=== PATIENT | female | born 2000 | race Caucasian/White ===

== ENCOUNTER 2024-06-04 08:40 | Emergency (ER) | payer OTHER, SELFPAY ==
--- NOTE | ~2024-06-04 | CT_ITS ---
EXAMINATION: CT ABDOMEN AND PELVIS WITH CONTRAST CLINICAL INFORMATION: Right lower quadrant abdominal pain COMPARISON: None available. TECHNIQUE: Multidetector volumetric images were obtained from the superior aspect of the liver through the pubic symphysis following administration 85 mL of Omnipaque 350 intravenous contrast. Sagittal and coronal reformatted images were obtained on the technologist's workstation. Oral contrast: No This CT examination was performed using dose optimization techniques as appropriate, variously including the following: *Automated exposure control *Adjustment of mA and/or kV according to patient size (this includes techniques or standardized protocols for targeted exams where dose is matched to indication/reason for exam; i.e. extremities or head) *Use of iterative reconstruction technique DLP: 540 mGy centimeter. FINDINGS: LUNG BASES: No acute airspace disease in the included lungs. LIVER, GALLBLADDER, AND BILIARY TREE: Liver measures 15 cm. 4 mm hypodensity in the peripheral posterior right hepatic lobe and few less than 3 mm hypodensities in the inferior right hepatic lobe, too small to be fully characterized. Main portal veins, hepatic veins and intrahepatic portion of the IVC are patent. Gallbladder is contracted without pericholecystic fluid collection or gallbladder wall thickening. No intrahepatic or extrahepatic biliary ductal dilatation. PANCREAS: No focal mass. No main pancreatic ductal dilatation. No peripancreatic fluid collection. SPLEEN: 10 cm. No focal mass. Small accessory spleen. ADRENAL GLANDS: No nodular lesions. KIDNEYS AND URETERS: No renal mass. No hydronephrosis. No gross nephrolithiasis. BLADDER: Fluid-filled. GASTROINTESTINAL TRACT: Appendix is normal. No intestinal obstruction pattern. No pneumatosis intestinalis. No pneumoperitoneum. Small amount of ascites in the cul-de-sac. ABDOMINAL WALL: No gross hernia. LYMPH NODES: No lymphadenopathy. VASCULAR: No aneurysm or dissection, abdominal aorta. PELVIC VISCERA: Mild fluid-filled fallopian tubes, bilaterally. OSSEOUS STRUCTURES: No acute fracture or listhesis. No lytic or blastic lesions. CT/CT abdomen pelvis w IV con IMPRESSION: Questionable mild hydrosalpinx bilaterally. Appendix is normal. 2. Subcentimeter cystic lesions, right hepatic lobe. Fleischner guidelines were followed. Electronically signed by: Garo Gutierrez MD 06/04/2024 12:28 PM [facility] [place]
[2024-06-04 08:50] VITALS: BP 110/64; PULSE 86; RESP 16; TEMP 36.8; O2SAT 100; BMI 28.2
--- NOTE | 2024-06-04 08:56 | ED_ITS ---
HPI - General Adult General Chief complaint: Abdominal Pain Stated complaint: R Side Low Abd Pain Time Seen by Provider: 06/04/24 08:56 Source: patient Mode of arrival: ambulatory Limitations: no limitations History of Present Illness ED Provider: Chanelle Samson PA-C HPI narrative: Patient is a 24 year old assigned female at with no reported medical history presenting to the emergency department today with abdominal pain. Patient states that she has had intermittent right lower quadrant abdominal pain for awhile but it has gotten worse over the last few days. Patient denies any dizziness, lightheadedness, nausea, vomiting, fever, chills, blurry vision, double vision, loss of vision, chest pain, difficulty breathing, shortness of breath, back pain, night sweats, pain with urination, increased urinary frequency, increased urinary urgency, blood in her urine or stool, syncope or a near syncopal episode, recent trauma or falls, bowel incontinence, bladder incontinence, or any other complaints at this time. Location: abdomen Relieving factors: none Exacerbating factors: none Associated symptoms: denies other symptoms Treatments prior to arrival: none Related Data Allergies Allergy/AdvReac Type Severity Reaction Status Date / Time Penicillins Allergy Hives Verified 06/04/24 08:53 Sulfa (Sulfonamide Allergy Anaphylaxis Verified 06/04/24 08:53 Antibiotics) Review of Systems 2 Constitutional: Constitutional: Reports no additional constitutional complaints, Denies chills, Denies fever(s) and Denies night sweats Eyes: Eyes: Reports no additional eye complaints, Denies blurry vision, Denies change in vision, Denies diplopia, Denies eye discharge, Denies loss of vision and Denies eye pain ENT: Denies dizziness Cardiovascular: Cardiovascular: Reports no additional cardiovascular complaints, Denies chest pain, Denies lightheadedness, Denies Loss of Consciousness and Denies dyspnea Respiratory: Respiratory: Reports no additional respiratory complaints and Denies dyspnea Gastrointestinal: Gastrointestinal: Reports no additional gastrointestinal complaints, Reports abdominal pain, Denies melena, Denies hematochezia, Denies change in bowel habits, Denies change in stool character, Denies nausea and Denies vomiting Genitourinary: Genitourinary: Denies hematuria, Denies urinary frequency, Denies dysuria, Denies urinary incontinence, Denies urinary hesitancy and Denies urinary urgency Musculoskeletal: Musculoskeletal: Reports no additional musculoskeletal complaints, Denies numbness and Denies tingling Neurologic: Denies dizziness, Denies loss of vision, Denies numbness and Denies tingling Psychiatric: Psychiatric: Reports no additional psychiatric complaints Endocrine: Endocrine: Reports no additional endocrine complaints Hematologic/Lymphatic: Hematologic/Lymphatic: Reports no additional hematologic/lymphatic complaints Allergic/Immunologic: Allergic/Immunologic: Reports no additional allergic/immunologic complaints [facility] Past Medical History Attestation statement: The following information was validated with the patient. Source: old records reviewed and nursing notes reviewed Social History Social History Advance Directives: No Advance Directives Information Provided: Yes Do you have a plan to hurt others: No Plan Physical Exam ED Vital Signs: Vital Signs - 24 hr 06/04/24 08:50 06/04/24 13:03 Temperature 98.3 F 98.3 F Pulse Rate 86 82 Respiratory Rate 16 16 Blood Pressure 110/64 111/64 Pulse Oximetry 100 100 Oxygen Delivery Method Room Air Room Air BMI result Body Mass Index 28.2 Const General: cooperative, no acute distress, alert and awake Nutritional Appearance: well nourished Orientation/consciousness: patient oriented x3 Limitations: no limitations HENMT Head: Yes normal to inspection and Yes atraumatic Ears: hearing grossly normal bilaterally and external ears normal General nose exam: Normal external nose present, no nasal discharge noted and no epistaxis Face and sinus: Yes normal facial exam, No abrasion and No laceration Mouth: Normal oral and palatal mucosa present, no drooling and no muffled voice Eyes General: appearance normal, both eyes and all related structures Periorbital: periorbital findings normal Eyelids: Yes eyelids normal Conjunctivae: conjunctivae normal Pupils: Equal, round and reactive pupils present EOM: EOMs intact bilaterally Neck Neck: Yes normal visual inspection, Yes full ROM and Yes no lymphadenopathy Chest Chest palpation & inspection: normal inspection of the chest Resp Effort & Inspection: normal respiratory effort and able to speak in complete sentences GI Inspection: Yes normal to inspection Palpation (GI): Soft to palpation, not firm, Tenderness to palpation present (GI) in the RLQ, no guarding and not rigid Neuro General: patient oriented x3 and moves all extremities Cranial nerves: Yes Equal, round and reactive pupils present Cognition (Neuro): normal cognition Extrem General: Yes normal to inspection, Yes full ROM and Yes capillary refill normal Psych Appearance: grossly normal Mental Status: mental status grossly normal Affect: normal affect Attitude: cooperative Thought process: Normal thought process present Thought content: Normal thought content present Insight: Good insight present (Psych) Medications Administered Discontinued Medications Generic Name Dose Route Start Last Admin Trade Name Jayy PRN Reason Stop Dose Admin Iohexol 100 ml 06/04/24 11:38 06/04/24 11:38 Iohexol 350 Mg/Ml 100 Ml Infus..Btl IV 06/04/24 11:39 85 ml ONCE ONE Administration Morphine Sulfate 4 mg 06/04/24 09:01 06/04/24 09:15 Morphine Sulfate 4 Mg/Ml Cartridge IVPUSH 06/04/24 09:02 Not Given ONCE ONE Protocol Ondansetron HCl 4 mg 06/04/24 09:01 06/04/24 09:15 Ondansetron Hcl 4 Mg/2 Ml Vial IVPUSH 06/04/24 09:02 4 mg ONCE ONE Administration Medical Decision Making Medical Decision Making MDM Narrative: Patient is a 24 year old assigned female at with no reported medical history presenting to the emergency department today with abdominal pain. Patient's physical exam was as noted in the physical exam portion of this note. Patient's blood work was unremarkable. Patient's urine showed trace lueks and 2+ bacteria but is contaminated. Will await culture before initiating treatment. Patient's CT abd/pelvis showed mild bilateral hydrosalpinx and 2 subcentimeter cystic lesions in the right hepatic lobe. I explained my physical exam findings as well as all test results to the patient. I answered all questions asked by the patient. Patient received morphine which, upon re-evaluation, she stated it helped her symptoms some. I stressed the importance of the patient taking her medication as directed (either prescribed or as the over the counter packaging recommends). I stressed the importance of the patient following up with her primary care provider and an OBGYN. I stressed the importance of the patient returning to the emergency department immediately if her symptoms were to worsen or if she were to develop any dizziness, shortness of breath, difficulty breathing, chest pain, blurry vision, loss of vision, nausea, vomiting, abdominal pain, fever, chills, back pain, or any other complaints. Patient verbalized agreement and understanding with this treatment plan and discharge. Differential Diagnosis Differential Diagnoses: The differential diagnosis associated with the presentation includes Abdominal pain Ovarian cyst Appendicitis Admission/Observation Consideration of admission/observation: Escalation of care including admission/observation considered Patient would have been admitted to the hospital had her work up had any findings where hospital admission was appropriate and her clinical presentation warranted hospital admission. Lab Data [facility] Lab Attestation statement: I reviewed the patient's lab results. My interpretation of these results are in the [facility] Rationale portion of this note. 06/04/24 09:10 06/04/24 09:10 Labs: Lab Results 06/04/24 06/04/24 Range/Units 09:10 10:48 WBC 8.8 (4.8-10.8) X10*3/uL RBC 4.44 (4.20-5.50) X10*6/uL Hgb 13.3 (12.0-16.0) g/dl Hct 37.4 (37.0-47.0) % MCV 84.2 (80.0-98.0) fL MCH 30.0 (27.0-33.0) pg MCHC 35.6 H (31.0-35.0) g/dl RDW 12.0 (11.0-16.0) % Plt Count 230 (160-400) X10*3/uL MPV 9.1 L (9.4-12.3) fL Immature Gran % (Auto) 0.6 H (0.0-0.4) % Neut % (Auto) 72.2 (45-73) % Lymph % (Auto) 19.2 L (20-40) % Walton % (Auto) 6.5 (2-11) % Eos % (Auto) 0.8 (0-4) % Baso % (Auto) 0.7 (0-2) % Lymph # (Auto) 1.7 (1.2-4.9) X10*3/uL Walton # (Auto) 0.6 (0.1-1.2) X10*3/uL Eos # (Auto) 0.1 (0.0-0.4) X10*3/uL Baso # (Auto) 0.1 (0.0-0.2) X10*3/uL Abs Immat Gran (auto) 0.05 H (0.00-0.03) X10*3/uL Absolute Neuts (auto) 6.3 (2.0-8.3) x10*3/uL Absolute Nucleated RBC 0.000 (0.0-0.012) X10*3/uL Nucleated RBC % (auto) 0.0 (0.0-0.2) /100WBC Sodium 136 (135-145) mmol/L Potassium 4.0 (3.3-5.1) mmol/L Chloride 105 (96-108) mmol/L Carbon Dioxide 24 (22-29) mmol/L Anion Gap 11 L (12-20) BUN 11 (9-16) mg/dL Creatinine 0.71 (0.5-1.4) mg/dL Estim Creat Clear Calc 114.3 Estimated GFR > 60 Random Glucose 102 (60-115) mg/dL Calcium 9.5 (8.4-10.2) mg/dL Total Bilirubin 0.4 (0.0-1.0) mg/dL Direct Bilirubin 0.1 (0.0-0.5) mg/dL AST 21 (5-31) U/L ALT 14 (0-31) U/L Alkaline Phosphatase 42 (39-117) U/L Total Protein 7.4 (6.5-8.0) g/dL Albumin 4.6 (3.5-5.0) g/dL Lipase 19 (8-78) U/L Beta HCG, Quant < 2 mIU/mL Urine Color Yellow Urine Appearance Cloudy Urine pH 6.5 (5.0-9.0) Ur Specific [place] <= 1.005 (1.005-1.025) Urine Protein Negative (Neg-Trace) mg/dL Urine Glucose (UA) Negative (Negative) mg/dL Urine Ketones Negative (Negative) mg/dL Urine Blood Negative (Negative) Urine Nitrite Negative (Negative) Ur Leukocyte Esterase Trace H (Negative) Urine RBC 0-2 (0-2) /HPF Urine WBC 0-5 (0-5) /HPF Ur Squamous Epith Cells 6-10 (0-2) /HPF Urine Bacteria 2+ (None Seen) Hyaline Casts 0-2 (0-2) /LPF Urine Test NEGATIVE (NEGATIVE) COVID-19 (CHEPE) Negative (Negative) COVID-19 Clin Com See Note Independent Interpretation I performed an independent interpretation of an: CT Scan Interpretation: My interpretation is in agreement with the radiologist's impression of this imaging study. L Report Number: [id number]: Total DLP = 540.00 mGy-cm EXAMINATION: CT ABDOMEN AND PELVIS WITH CONTRAST CLINICAL INFORMATION: Right lower quadrant abdominal pain COMPARISON: None available. TECHNIQUE: Multidetector volumetric images were obtained from the superior aspect of the liver through the pubic symphysis following administration 85 mL of Omnipaque 350 intravenous contrast. Sagittal and coronal reformatted images were obtained on the technologist's workstation. Oral contrast: No This CT examination was performed using dose optimization techniques as appropriate, variously including the following: *Automated exposure control *Adjustment of mA and/or kV according to patient size (this includes techniques or standardized protocols for targeted exams where dose is matched to indication/reason for exam; i.e. extremities or head) *Use of iterative reconstruction technique DLP: 540 mGy centimeter. FINDINGS: LUNG BASES: No acute airspace disease in the included lungs. LIVER, GALLBLADDER, AND BILIARY TREE: Liver measures 15 cm. 4 mm hypodensity in the peripheral posterior right hepatic lobe and few less than 3 mm hypodensities in the inferior right hepatic lobe, too small to be fully characterized. Main portal veins, hepatic veins and intrahepatic portion of the IVC are patent. Gallbladder is contracted without pericholecystic fluid collection or gallbladder wall thickening. No intrahepatic or extrahepatic biliary ductal dilatation. PANCREAS: No focal mass. No main pancreatic ductal dilatation. No peripancreatic fluid collection. SPLEEN: 10 cm. No focal mass. Small accessory spleen. ADRENAL GLANDS: No nodular lesions. KIDNEYS AND URETERS: No renal mass. No hydronephrosis. No gross nephrolithiasis. BLADDER: Fluid-filled. GASTROINTESTINAL TRACT: Appendix is normal. No intestinal obstruction pattern. No pneumatosis intestinalis. No pneumoperitoneum. Small amount of ascites in the cul-de-sac. ABDOMINAL WALL: No gross hernia. LYMPH NODES: No lymphadenopathy. VASCULAR: No aneurysm or dissection, abdominal aorta. PELVIC VISCERA: Mild fluid-filled fallopian tubes, bilaterally. OSSEOUS STRUCTURES: No acute fracture or listhesis. No lytic or blastic lesions. CT/CT abdomen pelvis w IV con IMPRESSION: Questionable mild hydrosalpinx bilaterally. Appendix is normal. 2 Subcentimeter cystic lesions, right hepatic lobe. Fleischner guidelines were followed. Electronically signed by: Garo Gutierrez MD 06/04/2024 12:28 PM [facility] Dictated By: Garo Wilde MD Signed By: Electronically signed by Garo Ruiz MD 06/04/24 1228 Radiology Impression Discussion of test interpretation with radiology: I have reviewed the radiologist's reading. Discharge Plan Discharge Clinical Impression: Abdominal pain Patient Disposition: Home, Self-Care Instructions: Abdominal Pain (ED) Additional Instructions: Your CT scan of the abdomen/pelvis showed a possible mild hydrosalpinx bilaterally. You should follow up with an OBGYN about this. Your scan also showed 2 subcentimeter (less than 1cm) cystic structures in the right hepatic lobe. These are likely benign but you should follow up with your PCP about them. Follow up with your primary care provider. Return to the emergency department immediately if your symptoms worsen or if you develop any dizziness, shortness of breath, difficulty breathing, chest pain, blurry vision, loss of vision, nausea, vomiting, abdominal pain, fever, chills, back pain, or any other complaints. Referrals: [facility] [Provider Group] (Call to establish and follow up with a primary care provider. If you already have a primary care provider, please follow up with them.) [facility] [Provider Group] (Call to establish and follow up with a primary care provider. If you already have a primary care provider, please follow up with them.) [facility] [Provider Group] (Call to establish and follow up with a primary care provider. If you already have a primary care provider, please follow up with them.) Interventions: ED Discharge Assessment Last Done: 06/04/24 13:03 Discharge Date/Time: 06/04/24 13:05 Print Language: Mauritanian
[2024-06-04 09:14] LABS: MANUAL DIFF FLAG NO
[2024-06-04 09:15] LABS: Basophils Absolute Auto 0.1 X10*3/uL (0.0-0.2); Basophils Percent Auto 0.7 % (0-2); Eosinophils Absolute Auto 0.1 X10*3/uL (0.0-0.4); Eosinophils Percent Auto 0.8 % (0-4); Hematocrit 37.4 % (37.0-47.0); Hemoglobin 13.3 g/dl (12.0-16.0); Imm Gran Abs Auto 0.05 X10*3/uL (0.00-0.03); Imm Gran Pct Auto 0.6 % (0.0-0.4); Lymphocytes Absolute Auto 1.7 X10*3/uL (1.2-4.9); Lymphocytes Percent Auto 19.2 % (20-40); Mean Corpuscular HGB Conc 35.6 g/dl (31.0-35.0); Mean Corpuscular Volume 84.2 fL (80.0-98.0); Mean Platelet Volume 9.1 fL (9.4-12.3); Monocytes Absolute Auto 0.6 X10*3/uL (0.1-1.2); Monocytes Percent Auto 6.5 % (2-11); Neutrophils Absolute Auto 6.3 x10*3/uL (2.0-8.3); Neutrophils Percent Auto 72.2 % (45-73); Platelet Count 230 X10*3/uL (160-400); Red Blood Count 4.44 X10*6/uL (4.20-5.50); White Blood Count 8.8 X10*3/uL (4.8-10.8)
[2024-06-04] MEDS: ondansetron HCL 4 MG/2 ML VIAL IVPUSH (09:15)
[2024-06-04 09:32] LABS: Alanine Aminotransferase 14 U/L (0-31); Albumin Level 4.6 g/dL (3.5-5.0); Anion Gap 11 (12-20); Aspartate Amino Transferase 21 U/L (5-31); Bilirubin Direct 0.1 mg/dL (0.0-0.5); Bilirubin Total 0.4 mg/dL (0.0-1.0); Blood Urea Nitrogen 11 mg/dL (9-16); Calcium 9.5 mg/dL (8.4-10.2); Carbon Dioxide 24 mmol/L (22-29); Chloride 105 mmol/L (96-108); Creatinine Clr Calc Pharmacy 114.3; Estimated Glomerular Filt Rate > 60; Glucose Random 102 mg/dL (60-115); Lipase 19 U/L (8-78); Sodium 136 mmol/L (135-145); Total Protein 7.4 g/dL (6.5-8.0)
[2024-06-04 09:33] LABS: COVID-19 Test Negative (Negative); IDNOW Serial# 58CA691E
--- OUTSIDE RECORDS SUMMARY | 2024-06-04 10:21 | XMS_ITS | Encounter Summary ---
Author Organization [employer] Address [address] [place] [address] [address] [place] [address] Care Team Providers Care Commercial Credit Reviewer Name Role Phone Frances Vargas MD Primary Care Provider [phone] Krystal Jaramillo Primary Care Provider Unavailable Encounter Details Date Type Department Care Team (Latest Contact Info) Description 09/02/2020 Abstract [facility] Dental, Provider, DDS Social History Tobacco Use Types Packs/Day Years Used Date Smoking Tobacco: Never Assessed Comments Unknown Sex and Gender Information Value Date Recorded Sex Assigned at Female 05/12/2022 11:10 AM EST Legal Sex Female 8:38 PM EDT Gender Identity Female 05/12/2022 11:10 AM EST Sexual Orientation Straight 05/12/2022 11 :10 AM EST documented as of this encounter Plan of Treatment Not on file documented as of this encounter Visit Diagnoses Not on filedocumented in this encounter Care Teams Commercial Credit Reviewer Relationship Specialty Start Date End Date Frances Vargas MD [address] [place] [address] PCP - General Internal Medicine 06/14/22 06/22/22 Krystal Jaramillo FNP [address] [place] [address] PCP - General Family Medicine 06/23/22 documented as of this encounter
--- OUTSIDE RECORDS SUMMARY | 2024-06-04 10:21 | XMS_ITS | Encounter Summary ---
Author Organization [employer] Address [address] [place] [address] [address] [place] [address] Care Team Providers Care Director Motion Picture Name Role Phone Frances Vargas MD Primary Care Provider [phone] Krystal Jaramillo Primary Care Provider Unavailable Encounter Details Date Type Department Care Team (Late st Contact Info) Description 04/25/2022 Abstract [facility] Dental [address] [place] [address] Dental, Provider, DDS Social History Tobacco Use [...] on filedocumented in this encounter Care Teams Director Motion Picture Relationship Specialty Start Date End Date Frances Vargas MD [address] [place] [address] PCP - General Internal Medicine 06/14/22 06/22/22 Krystal Jaramillo FNP [address] [place] [address] PCP - General Family Medicine 06/23/22 documented as of this encounter
--- OUTSIDE RECORDS SUMMARY | 2024-06-04 10:21 | XMS_ITS | Encounter Summary ---
Author Organization [employer] Address [address] [place] [address] [address] [place] [address] Care Team Providers Care Sap Bw Consultant Name Role Phone Frances Vargas MD Primary Care Provider [phone] Krystal Jaramillo Primary Care Provider Unavailable Encounter Details Date Type Department Care Team (Latest Contact Info) Description 03/03/2021 Abstract [facility] Dental, Provider, DDS Social [...] on filedocumented in this encounter Care Teams Sap Bw Consultant Relationship Specialty Start Date End Date Frances Vargas MD [address] [place] [address] PCP - General Internal Medicine 06/14/22 06/22/22 Krystal Jaramillo FNP [address] [place] [address] PCP - General Family Medicine 06/23/22 documented as of this encounter
--- OUTSIDE RECORDS SUMMARY | 2024-06-04 10:21 | XMS_ITS | Encounter Summary ---
Author Organization [employer] Address [address] [place] [address] [address] [place] [address] Care Team Providers Care Tacking Stitch Remover Name Role Phone Frances Vargas MD Primary Care Provider [phone] Krystal Jaramillo Primary Care Provider Unavailable Encounter Details Date Type Department Care Team (Latest Contact Info) Description 09/05/2021 Abstract [facility] Dental, Provider, DDS Social [...] on filedocumented in this encounter Care Teams Tacking Stitch Remover Relationship Specialty Start Date End Date Frances Vargas MD [address] [place] [address] PCP - General Internal Medicine 06/14/22 06/22/22 Krystal Jaramillo FNP [address] [place] [address] PCP - General Family Medicine 06/23/22 documented as of this encounter
--- OUTSIDE RECORDS SUMMARY | 2024-06-04 10:21 | XMS_ITS | Encounter Summary ---
Author Organization [employer] Address [address] [place] [address] [address] [place] [address] Care Team Providers Care Inspector Tubes Name Role Phone Frances Vargas MD Primary Care Provider Krystal Jaramillo Primary Care Provider Unavailable Encounter Details Date Type Department Care Team (Latest Contact Info) Description 03/02/2020 Abstract [facility] Dental, Provider, DDS Social [...] on filedocumented in this encounter Care Teams Inspector Tubes Relationship Specialty Start Date End Date Frances Vargas MD [address] [place] [address] PCP - General Internal Medicine 06/14/22 06/22/22 Krystal Jaramillo FNP [address] [place] [address] PCP - General Family Medicine 06/23/22 documented as of this encounter
--- OUTSIDE RECORDS SUMMARY | 2024-06-04 10:21 | XMS_ITS | Clinical Summary ---
Author Organization [employer] Address [address] [place] [address] 7 [place] [address] Care Team Providers Care Trimmer Hand Name Role Phone NicoOctavioMattyWilma robertosela DIRECTOR OF ARCHITECTURE Primary Care Provider Unavailable Allergies Active Allergy Reactions Criticality Noted Date Comments Amoxicillin Rash Low 03/09/2020 Other reaction(s): Unknown Penicillin G 06/04/2022 Other reaction(s): Unknown Sulfa Antibiotics 06/04/2022 Other reaction(s): shortness of breath Sulfamethoxazole Anaphylaxis High 03/09/2020 Medications VITAMIN D, CHOLECALCIFEROL , PO Vitamin D (Cholecalcif peri) Active cholecalciferol (Vitamin D3) 200 Unit tablet split tablet Vitamin D (Cholecalcif peri) Active B Complex Vitamins (vitamin-B complex) split tablet B Complex Active Multiple Vitamin (MULTIVITAMIN ADULT PO) Take by mouth. Active Active Problems Problem Noted Date Diagnosed Date Right lower quadrant abdominal pain 01/18/2024 Assessment & Plan (01/18/2024 8:55 PM EDT): Intermittent right lower abdominal/pelvic discomfort for 3 years per Melinda, no red flag symptoms. Somewhat cyclical as states notices it more the week before and after her menses when it is noticeable. No current pain. Encouraged to schedule with her PCP at [facility] for pap with pelvic exam and any clinically indicated labs as has never had pap and is overdue. Recommend also consider STI screening at that visit. If any new or worsening or red flag symptoms, reviewed tonight with Melinda, agrees would present to ER. Recurrent stomatitis 06/13/2022 Spasm of accommodation of both eyes 06/13/2022 Rosacea 06/13/2022 Chronic fatigue 06/13/2022 Menstrual periods irregular 06/13/2022 Abnormal uterine bleeding 06/13/2022 Migraine with aura 03/09/2020 Overview (06/13/2022): While on COCPs. Saw floaters and was told to stop the COCPs Immunizations Name Administration Dates Next Due DTP 1998,1998,1998 DTaP 1998,1998,1998 DTaP, 5 pertussis antigens 02/13/2003,08/09/1999 HPV, Quadrivalent 12/28/2010,06/30/2010,04/18/20 10 Hep A, ped/adol, 2 dose 11/16/2015,11/03/2014 Hep B, Adolescent or Pediatric 1998,1997,1998 Hep B, adult 10/13/2022,08/17/2022 02/23/2023 Hib (PRP-T) 04/19/1999,1998,1998 ,1998 IPV 02/13/2003,01/31/1999,1998 ,1998 Influenza, Unspecified 02/09/2023 Influenza, live, intranasal 04/18/2010 MMR 02/13/2003,01/31/1999 Meningococcal MCV4P [id number] 11/03/2014,10/23/19 13 Moderna Covid-19 Vaccine 12+ 07/21/2022 OPV 1998,1998 Pfizer Covid-19 Vaccine 12+ 03/18/2021,,02/19/2021,02/19/2021 Tdap 11/02/2021,04/18/2010 Varicella 06/30/2010,01/31/1999 Family History Medical History Relation Name Comments No Known Problems Brother 1 No Known Problems Brother 2 No Known Problems Father paternal h istory unknown Nephrolithiasis Maternal Grandfather Cataracts Maternal Grandmother No Known Problems Mother Coronary artery disease Other maternal aunt carlos nt placed, doing well Diabetes Neg Hx Heart attack Neg Hx no known family history of eye diseases; MGF - [place], DM M- pretty healthy, Relation Name Status Comments Brother 1 Alive Brother 2 Alive Father Alive Maternal Grandfather Alive Maternal Grandmother Mother Alive Other maternal aunt Alive Social History Tobacco Use Types Packs/Day Years Used Date Smoking Tobacco: Never Smokeless Tobacco: Never Tobacco Cessation:Counseling Given: Not Answered Alcohol Use Standard Drinks/Week Comments Yes 3 (1 standard drink = 0.6 oz pur e alcohol) Housing Stability Answer Date Recorded What is your housing situation today? I have yovany gomez 02/23/[address] you li ve. Do you have problems with any of the following? None of the above 02/23/2023 Food Insecurity Answer Date Recorded Within the past 12 months, y ou worried that your food would run out before you got money to buy more: Never True 02/23/2023 Within the past 12 months,th e food you bought just didn't last and you didn't have enough money to get more: Never True Transportation Answer Date Recorded In the past 12 months, has l ack of transportation kept you from medical appts, meetings, work or from getting things needed for daily living? No 02/23/2023 Utilities Answer Date Recorded In the past 12 months, has t he electric, gas, oil or water company threatened to shut off services in your home? No 02/23/2023 Depression Answer Date Recorded Patient Health Questionnaire-2 Score 0 06/23/2022 Comments No Sex and Gender Information Value Date Recorded Sex Assigned at Female 05/12/2022 11:10 AM EST Legal Sex Female 8:38 PM EDT Gender Identity Female 05/12/2022 11:10 AM EST Sexual Orientation Straight 05/12/2022 11 :10 AM EST Occupation Industry Job Start Date Job End Date Ict Business Analyst Lead @ [employer] Not on file Not on file Not on file Last Filed Vital Signs Vital Sign Reading Time Taken Comments Blood Pressure 116/71 10/16/2022 2:48 PM EDT Pulse 98 10/16/2022 2:48 PM EDT Temperature 36.5 ??C (97.7 ??F) 10/16/2022 2:48 PM ED T Respiratory Rate 16 08/04/2022 10:48 AM EDT Oxygen Saturation 99% 06/23/2022 9:41 AM EST Inhaled Oxygen Concentration - - Weight 71.7 kg (158 lb) 10/16/2022 2:48 PM EDT Height 160 cm (5' 3 ) 10/16/2022 2:48 PM EDT Body Mass Index 27.99 10/16/2022 2:48 PM EDT Plan of Treatment Health Maintenance Due Date Last Done Comments HIV Screening 1998 Alcohol/Substance Use Screening 2010 Family Planning (PISQ) 2013 Hepatitis C Screening 01/26/2016 Pap Smear 2019 Dental X-Ray: Full Mouth 04/30/2021 04/29/2018 Dental X-Ray: Bitewings 05/13/2023 05/12/19 23, 03/03/2021, 03/02/2020, Additional history exists Depression Screening 06/23/2023 06/23/2022, 06/23/19 23 SDOH Screening 06/23/2023 06/23/2022 Tobacco Screening 10/17/2023 10/16/2022 Dental Oral Exam 11/02/2023 05/02/2023, 06/2021, 03/03/2021, Additional history exists Dental Prophylaxis 11/02/2023 05/02/2023, 0 05/12/2022, 09/05/2021, Additional history exists COVID-19 Vaccine ( season) 2024 07/21/2022, 03/18/2021, 03/18/2021, Additional history exists Influenza Vaccine (#1) 2024 02/09/2023, 2009 DTaP/Tdap/Td Vaccines (8 - Td or Tdap) 11/03/2031 11/02/2021, 04/18/2010, 02/13/2003, Additional history exists Zoster Vaccines (1 of 2) 01/26/2048 RSV Patients and Patients Aged 60 years or older (1 - 1-dose 75+ series) 2073 HIB Vaccines Completed 04/19/1999, 07/07, 1998, Additional history exists IPV Vaccines Completed 02/13/2003, 01/06, 1998, Additional history exists HPV Vaccines Completed 12/28/2010, 06/08, 04/18/2010 Meningococcal Vaccine Completed 11/03/2014, 013 Hepatitis A Vaccines Completed 11/16/2015, 11/04/19 15 Hepatitis B Vaccines Completed 10/13/2022, 08/17/2022, 1998, Additional history exists Pneumococcal Vaccine: Pediatrics (0 to 5 Years) and At-Risk Patients (6 to 49) Years) Aged Out No longer eligible based on patient's age to complete this topic RSV under 20 months Aged Out No longe r eligible based on patient's age to complete this topic Rotavirus Vaccines Aged Out No longer eligible based on patient's age to complete this topic Procedures Procedure Name Priority Date/Time Associated Diagnosis Comments Full PROPHYLAXIS - ADULT Routine 023 11:00 AM EST PERIODIC ORAL EVALUATION - ESTABLISHED PATIENT Routine 05/02/2023 11:00 AM EST BITEWINGS - 4 RADIOGRAPHIC IMAGES Routine 05/12/2022 10:45 AM EST DIAGNOSTIC - DIAGNOSTIC IMAGING - INTRAORAL - COMPREHENSIVE SERIES OF RADIOGRAPHIC IMAGES Routine 04/29/2018 12:00 AM EST from Last 3 Months or Most Recently Relevant to Health Maintenance Insurance [employer] DENT[employer] - HSN FULL (MEDICAID) Care Teams Trimmer Hand Relationship Specialty Start Date End Date Krystal Jaramillo FNP PCP - General Family Medicine 06/23/22
--- OUTSIDE RECORDS SUMMARY | 2024-06-04 10:21 | XMS_ITS | Encounter Summary ---
Author Organization [employer] Address [address] [place] [address] [address] [place] [address] Care Team Providers Care Caterer Helper Name Role Phone Frances Vargas MD Primary Care Provider [phone] Krystal Jaramillo Primary Care Provider Unavailable Encounter Details Date Type Department Care Team (Latest Contact Info) Description 11/11/2018 Abstract [facility] CONVERSIONS Dental, Provider, DDS Social [...] on filedocumented in this encounter Care Teams Caterer Helper Relationship Specialty Start Date End Date Frances Vargas MD [address] [place] [address] PCP - General Internal Medicine 06/14/22 06/22/22 Krystal Jaramillo FNP [address] [place] [address] PCP - General Family Medicine 06/23/22 documented as of this encounter
--- OUTSIDE RECORDS SUMMARY | 2024-06-04 10:22 | XMS_ITS | Encounter Summary ---
Author Organization [facility] Address [address] [place] [id number] Phone Care Team Providers Care Restaurant Area Director Name Role Phone Titi Garcia MD Primary Care Provider Encounter Details Date Type Department Care Team (Late st Contact Info) Description 03/08/2017 Conversion Encounter [facility] [place] [address] [place] [address] Social History Tobacco Use Types Packs/Day Years Used Date Smoking Tobacco: Never Comments:Never smoker Comments Unknown Sex and Gender Information Value Date Recorded Sex Assigned at Not on file Legal Sex Female 5:24 PM EDT Gender Identity Not on file Sexual Orientation Not on file documented as of this encounter Plan of Treatment Not on file documented as of this encounter Visit Diagnoses Not on filedocumented in this encounter Care Teams Restaurant Area Director Relationship Specialty Start Date End Date Titi Garcia MD [address] [place] [address] PCP - General 12/15/16 08/16/22 documented as of this encounter
--- OUTSIDE RECORDS SUMMARY | 2024-06-04 10:22 | XMS_ITS | Clinical Summary ---
Author Organization [facility] Address [address] [place] [phone] Phone Care Team Providers Care Meter Setter Name Role Phone Unavailable Primary Care Provider Unavailabl e Allergies Active Allergy Reactions Criticality Noted Date Comments Amoxicillin Rash Low Sulfamethoxazole Anaphylaxis High Trimethoprim Anaphylaxis High Medications norgestimate-ethin yl estradiol (SPRINTEC 28) 0.25-35 MG-MCG per tabletIndications: Surveillance of contraceptive pill Take 1 tablet by mouth daily. 28 tablet 12 8 Active Active Problems Problem Noted Date Diagnosed Date Oral contraceptive pill surveillance 09/14/2017 Overview (09/14/2017): On sprintec and doing well, wishes to continue. Immunizations Name Administration Dates Next Due DTP 1998,1998,1998 DTaP 5 02/13/2003,08/09/1999 HPV, Quadrivalent 12/28/2010,06/30/2010,04/18/20 10 Hep A, ped/adol 11/16/2015,11/03/2014 Hep B, ped/adol 1998,1998,1998 Hib (PRP-T) 04/19/1999, 9,1998, 998 IPV 02/13/2003,01/31/1999 Influenza, intranasal, trivalent 04/18/2010 MMR 02/13/2003,01/31/1999 Meningococcal Conj (Menactra) MCV4P 11/03/2014,0 10/22/2012 OPV 1998,1998 Tdap 04/18/2010 Varicella 06/30/2010,01/31/1999 Family History Medical History Relation Name Comments Diabetes Maternal Grandfather Clotting disorder Maternal Grandmother No Known Problems Mother Relation Name Status Comments Brother Brother: Alive and well, ADD/ADHD, Alive and well, Asthma Maternal Grandfather Materna l grandfather: Diabetes mellitus, *CVA/Stroke Maternal Grandmother Materna l grandmother: Blood clots, lung Mother Alive Mother: Obesity , Alive and well Social History Tobacco Use Types Packs/Day Years Used Date Smoking Tobacco: Never Smokeless Tobacco: Never Comments:Never smoker Alcohol Use Standard Drinks/Week Comments No 0 (1 standard drink = 0.6 oz pur e alcohol) Comments Unknown Sex and Gender Information Value Date Recorded Sex Assigned at Not on file Legal Sex Female 5:24 PM EDT Gender Identity Not on file Sexual Orientation Not on file Last Filed Vital Signs Vital Sign Reading Time Taken Comments Blood Pressure 123/71 09/14/2017 2:38 PM EDT Pulse 76 09/14/2017 2:38 PM EDT Temperature 37.3 ??C (99.2 ??F) 09/14/2017 2:38 PM ED T Respiratory Rate - - Oxygen Saturation - - Inhaled Oxygen Concentration - - Weight 62.9 kg (138 lb 9.6 oz) 09/14/2017 2:38 P M EDT Height 162.6 cm (5' 4 ) 09/14/2017 2:38 PM EDT Body Mass Index 23.79 09/14/2017 2:38 PM EDT Plan of Treatment Health Maintenance Due Date Last Done Comments DTaP,Tdap,and Td Vaccines (7 - Td or Tdap) 04/18/2020 04/18/2010, 02/13/2003, 08/09/1999, Additional history exists Influenza Vaccines (#1) 2023 04/18/2010 COVID-19 Vaccine ( season) 2024 Hepatitis B Vaccines Completed 1998, 1998, 1998 HIB Vaccines Completed 04/19/1999, 07/07, 1998, Additional history exists IPV Vaccines Completed 02/13/2003, 01/06, 1998, Additional history exists MMR Vaccines Completed 02/13/2003, 01/31/1999 Varicella Vaccines Completed 06/30/2010, 01/31/1999 HPV Vaccines Completed 12/28/2010, 06/08, 04/18/2010 Meningococcal Vaccine Completed 11/03/2014, 013 Hepatitis A Vaccines Completed 11/16/2015, 11/04/19 15 Men B Vaccine Aged Out No longer elig ible based on patient's age to complete this topic Pneumococcal Vaccine Aged Out No long er eligible based on patient's age to complete this topic Procedures * Due to [place] Swype law, this organization might not be sharing sensitive test results. Procedure Name Priority Date/Time Associated Diagnosis Comments CHLAMYDIA AND GONORRHEA, AMPLIFIED Routine 09/14/2017 2:52 PM EDT Well adult exam from Last 3 Months or Most Recently Relevant to Health Maintenance Results * Due to [place] Swype law, this organization might not be sharing sensitive test results. * Chlamydia and Gonorrhea, Amplified (09/14/2017 2:52 PM EDT) Chlamydia Trachomatis, DNA Probe NEGATIVE (NEG) [facility] Comment: No Chlamydia Trachomatis RNA detected in this patient's sample ? (REFERENCE RANGE/NORMAL VALUE: NOT DETECTED) ? Note: This test uses tape coater- mediated amplification method to detect rRNA from C. Trachomatis URINE GC AMP PROBE NEGATIVE (NEG) [facility] Comment: No Neisseria Gonorrhoeae RNA detected in this patient's sample ? (REFERENCE RANGE/NORMAL VALUE: NOT DETECTED) ? NOTE: This test uses tape coater-mediated amplification method to detect rRNA from N.Gonorrhoeae. A negative result does not preclude infection. In the case of a negative urine result, testing of an endocervical(female) or urethral (male) specimen is recommended if there is high clinical suspicion of infection. Due to very high sensitivity of Nucleic Acid Amplification Test, false positive results may occur. Therefore, specimen handling is extremely important. In patients in whom the disease is unlikely, additional sample for testing should be considered after an initial positive result. The performance characteristics of this test have not been evaluated in children. The Aptima Combo2 assay is not intended for the evaluation of suspected sexual abuse or for other medico-legal indications. The ordering provider should assess if the patient had consensual sex without risk of sexual abuse. Consult the [facility] if needed. Contact phone number . Therapeutic failure or success cannot be determined with the Aptima Combo2 assay since nucleic acid may persist following appropriate antimicrobial therapy. The Centers for Disease Control and Prevention (CDC) recommends confirmatory retesting using culture or a different nucleic acid amplification test when positive results occur, if indicated. Testing performed or reported by [facility], a Service of [facility], [address] [place] [address] CLIA ??[id number] Praveen Tyler MD, PhD, It Solutions Architect Urine 09/14/2017 2:52 PM EDT 09/15/2017 us Shanelle Lau NP LAB MICROBIOLOGY - GENERA L ORDERABLES Final Result [facility] from Last 3 Months or Most Recently Relevant to Health Maintenance Insurance [facility]
[2024-06-04 11:01] LABS: Appearance Urine Cloudy; Color Urine Yellow; Glucose Urine UA Negative (Negative); Leukocyte Esterase Urine Trace (Negative); Nitrite Urine Negative (Negative); PH 6.5 (5.0-9.0); Specific Gravity - Urine <= 1.005 (1.005-1.025); UMIC TRIGGER UACC YES; Urine Blood Negative (Negative); Urine Ketones Negative (Negative); Urine Protein Negative (Neg-Trace)
[2024-06-04 11:03] LABS: UPreg QC Valid YES; Urine Pregnancy NEGATIVE (NEGATIVE)
[2024-06-04 11:06] LABS: Bacteria Urine 2+ (None Seen); Hyaline Casts Urine 0-2 /LPF (0-2); RBC Urine 0-2 /HPF (0-2); WBC Urine 0-5 /HPF (0-5)
[2024-06-04 11:11] LABS: Alkaline Phosphatase 42 U/L (39-117); HCG Quantitative < 2 mIU/mL
[2024-06-04] MEDS: iohexoL 350 MG/ML 100 ML INFUS..BTL IV (11:38)
[2024-06-04 13:03] VITALS: BP 111/64; PULSE 82; RESP 16; TEMP 36.8; O2SAT 100
== END 2024-06-04 13:05 | disposition home or self-care (01) ==
PROVIDERS: Physician Assistant Medical; Emergency Provider Student in an Organized Health Care Education/Training Program
DX: R10.2 Pelvic and perineal pain (principal); R10.31 Right lower quadrant pain; Z11.52 Encounter for screening for COVID-19; Z79.899 Other long term (current) drug therapy
CPT/HCPCS: 36415; 74177; 80048; 80076; 81001; 81003; 81025; 83690; 84702; 85025; 87635; 96374; 99284; J2405; Q9967

== ENCOUNTER → 2024-06-04 08:56 | Outpatient (BNV) | payer OTHER, SELFPAY | PROVIDERS: Emergency Provider Student in an Organized Health Care Education/Training Program; Visit Provider Radiology Diagnostic Radiology | DX: K76.89 Other specified diseases of liver (principal) | CPT/HCPCS: 74177 ==